=== PATIENT | female | born 1965 | race American Indian/Alaskan Native ===

== ENCOUNTER 2016-08-30 13:02 | Outpatient (CLI) | payer BC ==
--- NOTE | 2016-08-30 14:21 | XRay Report ---
ROUTINE CHEST, TWO VIEWS: HISTORY: Cough. The trachea, heart, mediastinal contour, lung thompson and bony thorax are unremarkable. IMPRESSION: Unremarkable chest x-ray. No significant change since 12/14/15.
--- NOTE | 2016-08-30 17:50 | Vascular Lab Report ---
LOWER EXTREMITY VENOUS DUPLEX: REASON FOR EXAM: Edema. COMMENTS ON THE RIGHT: All veins visualized are freely compressible without evidence of internal echogenicity. Flow is spontaneous and phasic throughout. COMMENTS ON THE LEFT: All veins visualized are freely compressible without evidence of internal echogenicity. Flow is spontaneous and phasic throughout. IMPRESSION: No evidence of acute or chronic deep venous thrombosis in either lower extremity.
== END 2016-08-30 13:03 | disposition home or self-care (01) ==
LOC: VAS 13:02
DX: R05 Cough (principal); R60.9 Edema, unspecified
CPT/HCPCS: 71020; 93970

== ENCOUNTER 2018-07-14 10:31 | Outpatient (CLI) | payer BC ==
--- NOTE | 2018-07-14 11:46 | XRay Report ---
BILATERAL HIPS WITH PELVIS, 3 VIEWS: History: Hip pain. Findings: Bone mineralization is within normal limits. There is no evidence for fracture, dislocation or pelvic diastasis. Minimal early osteoarthritic changes are suspected in both hips. The soft tissues are unremarkable. Impression: Minimal osteoarthritis.
== END 2018-07-14 10:32 | disposition home or self-care (01) ==
LOC: XRAY 10:31
DX: M16.0 Bilateral primary osteoarthritis of hip (principal); I10 Essential (primary) hypertension
CPT/HCPCS: 73521

== ENCOUNTER 2018-12-05 16:11 | Emergency (ER) | payer BC ==
--- NOTE | 2018-12-05 17:45 | XRay Report ---
LUMBAR SPINE 3 VIEWS INDICATION: LUMBAR PAIN. COMPARISON: No relevant prior imaging study available. FINDINGS: There is no acute skeletal abnormality. Lumbar vertebral body height is maintained. There is minimal anterolisthesis of L3 on L4 which may be due to mild facet arthropathy. There is mild discogenic dege nerative change. SI joints are within normal limits. IMPRESSION: 1. No acute findings. Signer Name: Atul Gutierrez MD Signed: 12/05/2018 5:40 PM Workstation Name: [id number]
--- NOTE | 2018-12-05 17:46 | XRay Report ---
CERVICAL SPINE 3 VIEWS INDICATION: Cervical neck pain. COMPARISON: 03/13/2018. FINDINGS: No acute fracture or subluxation is seen. Mild mid to lower cervical discogenic degenerative change h as not significantly progressed. Alignment is normal. There is no prevertebral soft tissue swelling. IMPRESSION: 1. No acute findings. Signer Name: Atul Gutierrez MD Signed: 12/05/2018 5:41 PM Workstation Name: [id number]
== END 2018-12-05 21:45 | disposition left against medical advice (07) ==
LOC: ED 16:11
DX: M54.9 Dorsalgia, unspecified (principal); Z53.21 Procedure and treatment not carried out due to patient leaving prior to being seen by health care provider
CPT/HCPCS: 72040; 72100